=== PATIENT | male | born 1995 | race Hispanic/Latino ===

== ENCOUNTER 2018-04-20 17:26 | Emergency (ER) | payer SELFPAY ==
[2018-04-20] MEDS ORDERED: Ketorolac Tromethamine 30 MG/ML VIAL ONE (17:40)
--- NOTE | 2018-04-20 18:48 | RAD ---
LUMBAR SPINE SERIES THREE VIEWS: 04/20/18 HISTORY: Low back pain times the last year and a half. Pain is worse today. Vertebral bodies are normal in height. Disc spaces are well preserved. Pedicles appear intact. No spo ndylolisthesis. IMPRESSION: Unremarkable lumbar spine series. POS: [facility]
[2018-04-20] MEDS ORDERED: Acetaminophen 500 MG TAB ONE (18:53)
[2018-04-20] MEDS ORDERED: Cyclobenzaprine 10 MG TAB ONE (18:53)
== END 2018-04-20 19:32 | disposition home or self-care (01) ==
LOC: ERS 17:26
DX: M54.5 Low back pain (principal); F17.210 Nicotine dependence, cigarettes, uncomplicated
CPT/HCPCS: 72100; 96372; J1885

== ENCOUNTER 2018-06-16 13:54 | Emergency (ER) | payer SELFPAY ==
[2018-06-16] MEDS ORDERED: Ketorolac Tromethamine 60 MG/2 ML VIAL ONE (15:23)
== END 2018-06-16 15:44 | disposition home or self-care (01) ==
LOC: ERS 13:54
DX: S39.012A Strain of muscle, fascia and tendon of lower back, initial encounter (principal); F17.210 Nicotine dependence, cigarettes, uncomplicated; X58.XXXA Exposure to other specified factors, initial encounter
CPT/HCPCS: 96372; J1885

== ENCOUNTER 2019-04-21 04:02 | Emergency (ER) | payer SELFPAY ==
[2019-04-21] MEDS ORDERED: Ketorolac Tromethamine 30 MG/ML VIAL ONE (04:30)
== END 2019-04-21 04:51 | disposition home or self-care (01) ==
LOC: ERS 04:02
DX: M54.5 Low back pain (principal)
CPT/HCPCS: 96372; 99283; J1885

== ENCOUNTER 2019-10-05 10:31 | Emergency (ER) | payer SELFPAY ==
--- NOTE | 2019-10-05 11:35 | RAD ---
EXAM: Chest PA and lateral: HISTORY: Back pain. COMPARISON: None FINDINGS: Heart: Normal cardiac silhouette Aorta: Unremarkable Pulmonary vessels: Normal Costophrenic angles: Costophrenic angles are clear. Lungs: No consolidation or masses. Pneumothorax: No pneumothorax Osseous structures: No osseous abnormalities IMPRESSION: No acute cardiopulmonary process.
== END 2019-10-05 12:00 | disposition home or self-care (01) ==
LOC: ERS 10:31
DX: R07.81 Pleurodynia (principal)
CPT/HCPCS: 71046

== ENCOUNTER 2022-01-06 14:02 | Emergency (ER) | payer SELFPAY | END 2022-01-06 16:58 | disposition home or self-care (01) | LOC: ERS 14:02 | DX: R04.0 Epistaxis (principal) | CPT/HCPCS: 99282 ==

== ENCOUNTER 2022-02-08 17:29 | Emergency (ER) | payer SELFPAY ==
[2022-02-08] MEDS ORDERED: Meclizine HCl 25 MG TAB ONE (18:11)
[2022-02-08 18:28] LABS: #Eosinphils 0.1 thou/uL (0.0-0.7); #Lymphocytes 2.6 thou/uL (1.20-3.40); #Monocytes 0.8 thou/uL (0.11-0.59); #Neutrophils 6.7 thou/uL (1.40-6.50); %Basophils 0.3 % (0.0-1.0); %Eosinophils 0.7 % (0.0-10.0); Hemoglobin 16.5 g/dL (14.0-18.0); Mean Corpuscular HGB CONC 35.7 g/dL (32.0-36.0); Mean Corpuscular Hemoglobin 33.5 pg (27.0-31.0); Mean Platelet Volume 7.5 fL (7.4-10.4); Platelet Count 272 10x3/uL (130-400); RBC Distribution Width 11.5 % (11.5-14.5); Red Blood Cell (RBC) Count 4.93 mill/uL (4.70-6.10); White Blood Cell (WBC) Count 10.2 10x3/uL (4.8-10.8)
[2022-02-08 18:38] LABS: ALT (SGPT) 17 U/L (8-55); AST (SGOT) 26 U/L (5-34); Albumin 4.3 g/dL (3.5-5.0); Alkaline Phosphatase 109 U/L (40-110); Anion Gap 12 mmol/L (10-20); BUN (Urea Nitrogen) 7 mg/dL (8.9-20.6); Bilirubin, Total 0.5 mg/dL (0.2-1.2); Calc. Creatinine Clearance 0 mL/min (70-130); Calcium 9.2 mg/dL (7.8-10.44); Carbon Dioxide 26 mmol/L (22-29); Chloride 105 mmol/L (98-107); Estimated GFR 125; Globulin 3.5 g/dL (2.4-3.5); Glucose 104 mg/dL (70-105); Protein, Total 7.8 g/dL (6.0-8.3); Sodium 139 mmol/L (136-145)
== END 2022-02-08 19:27 | disposition home or self-care (01) ==
LOC: ERS 17:29
DX: R42 Dizziness and giddiness (principal); F17.200 Nicotine dependence, unspecified, uncomplicated; F17.290 Nicotine dependence, other tobacco product, uncomplicated
CPT/HCPCS: 36415; 80053; 85025; 93005